=== PATIENT | female | born 1955 | race Caucasian/White ===

== ENCOUNTER 2024-03-26 17:13 | Emergency (ER) | payer MEDICARE, BC, SELFPAY ==
[2024-03-26] VITALS (8 sets, daily range): BP systolic 151–201; BP diastolic 77–119
--- NOTE | 2024-03-26 17:40 | ED.GENMED ---
ED Provider Triage
<Ludmila Bowles NP - Last Filed: 03/26/24 17:42>
-
Patient seen by provider in Triage?: Seen in Triage
Attestation: A medical screening examination has been initiated by a qualified medical provider. Based on the assessment performed at this time, it has been determined that an emergent medical condition may exist and the patient has been informed
that further medical evaluation and possible additional diagnostic testing may be needed.
HPI: 68-year-old female with no significant past medical history presents for for 'a little lightheaded,' feels 'internally queasy and tremulous,' took her blood pressure at home that was 181/85.
She got worried because she was here a year approximately a year ago with high blood pressure (also had a cold at that time) and out of nowhere was diagnosed with pneumonia
GENERAL: Alert , in no apparent distress
EYE: No visual abnormalities.
NECK: Trachea midline
ENT: No visible abnormalities.
LUNGS: No acute respiratory distress
NEUROLOGICAL: Alert and oriented
SKIN: Skin intact. No visible changes.
MUSCULOSKELETAL: Moving extremities normally
PSYCH: Normal and appropriate interaction.
This is a medical evaluation conducted in person to initiate diagnostic evaluation and provide initial therapeutics. Please see further documentation by the treating clinician.
History of Present Illness
<Ludmila Bowles LABOR RELATIONS SPECIALIST - Last Filed: 03/26/24 17:42>
General
Chief Complaint: Dizziness
Time Seen by Provider: 03/26/24 19:53
<Musa Arnold PA-C - Last Filed: 03/27/24 00:13>
History of Present Illness
History of Present Illness:
68-year-old female with history of hypertension and hyperlipidemia presents for evaluation of dizziness and generalized fatigue as well as nausea for the past 3 days. Symptoms are intermittent but seem to be worsening. She also notes that her
blood pressure and heart rate are quite elevated. Denies any chest pain or shortness of breath. Does note a correlation to symptoms from 1 year ago other than when she was diagnosed with pneumonia however at that time did have a cough and
respiratory symptoms. No recent nausea or vomiting. Scheduled to see a languages and literature instructor when she returns to [place] next month
Past History
<Ludmila Bowles LABOR RELATIONS SPECIALIST - Last Filed: 03/26/24 17:42>
Past History
ED Past Medical History: HTN and Hypercholesterolemia
ED Past Surgical History: Orthopedic (Total right hip replacement. Right hip ligament repair)
Social History
Tobacco: Non-smoker
Alcohol: Occasional
Personal:
Living: alone
Review of Systems
<Musa Arnold PA-C - Last Filed: 03/27/24 00:13>
Review of Systems
Allergies reviewed?: Yes
All Other Systems: ROS reviewed and negative except as documented in HPI and ROS
Phy Exam
<Musa Arnold PA-C - Last Filed: 03/27/24 00:13>
Physical Exam
Physical Exam:
GEN: Well appearing, NAD, WDWN
Eyes: PERRLA, EOMs intact, no scleral icterus
HENT: NCAT, oral mucosa moist, no JVD,
Lungs: CTAB, no wheezes, rales, rhonchi, normal chest wall excursion
Cardiac: RRR, no M/R/G, no peripheral edema. Radial pulses 2+ bilat
Neuro: AO x 3, no focal deficits to BUE/BLE, normal sensation throughout
MSK: No gross deformity or ecchymosis. No edema. No digital clubbing
Skin: No rashes, petechiae. Normal color, no pallor or jaundice.
Psych: Calm, cooperative, proper hygiene
Course
<Ludmila Bowles LABOR RELATIONS SPECIALIST - Last Filed: 03/26/24 17:42>
Orders/Labs/Results
Orders:
Orders
03/26/24 17:32
Electrocardiogram (*1) Urgent
Reason for Study: Hypertension, Benign
03/26/24 17:33
EKG- Treatment ONCE
03/26/24 17:45
Complete Blood Count/With Diff Urgent
Comprehensive Metabolic Panel Urgent
Magnesium Urgent
TSH Reflex To Free T4 Urgent
03/26/24 20:15
CT Head W/o Iv Contrast Urgent
Comment:
Reason For Exam: dizziness, HTN
CR Chest - 2 Views Urgent
Comment:
Reason For Exam: HTN urgency
03/26/24 20:18
Troponin I Urgent
03/26/24 22:06
Labetalol HCl [Trandate] 20 mg IV NOW STA
03/26/24 23:05
Acetaminophen [Tylenol] 650 mg PO NOW STA
Abnormal Lab Results
03/26/24
17:45
RBC 4.06 L 10^6/uL
(4.20-5.40)
MCH 32.5 H pg
(27.0-31.0)
Neutrophils % 76.0 H %
(42.2-75.2)
Lymphocytes % 15.5 L %
(20.5-51.1)
BUN 20 H mg/dl
(7-17)
Glucose 109 H mg/dl
(70-99)
03/26/24 17:45
03/26/24 17:45
Vital Signs
Initial and Last Documented VS:
Initial Vital Signs
Temp Pulse Resp BP Pulse Ox
98.2 F 115 20 176/119 98
03/26/24 17:26 03/26/24 17:26 03/26/24 17:26 03/26/24 17:26 03/26/24 17:26
Last Documented Vital Signs
Temp Pulse Resp BP Pulse Ox
98.2 F 104 18 153/91 96
03/26/24 17:26 03/26/24 23:15 03/26/24 23:15 03/26/24 23:00 03/26/24 23:15
<Musa Arnold PA-C - Last Filed: 03/27/24 00:13>
Orders/Labs/Results
Orders:
Orders
03/26/24 17:32
Electrocardiogram (*1) Urgent
Reason for Study: Hypertension, Benign
03/26/24 17:33
EKG- Treatment ONCE
03/26/24 17:45
Complete Blood Count/With Diff Urgent
Comprehensive Metabolic Panel Urgent
Magnesium Urgent
TSH Reflex To Free T4 Urgent
03/26/24 20:15
CT Head W/o Iv Contrast Urgent
Comment:
Reason For Exam: dizziness, HTN
CR Chest - 2 Views Urgent
Comment:
Reason For Exam: HTN urgency
03/26/24 20:18
Troponin I Urgent
03/26/24 22:06
Labetalol HCl [Trandate] 20 mg IV NOW STA
03/26/24 23:05
Acetaminophen [Tylenol] 650 mg PO NOW STA
Abnormal Lab Results
03/26/24
17:45
RBC 4.06 L 10^6/uL
(4.20-5.40)
MCH 32.5 H pg
(27.0-31.0)
Neutrophils % 76.0 H %
(42.2-75.2)
Lymphocytes % 15.5 L %
(20.5-51.1)
BUN 20 H mg/dl
(7-17)
Glucose 109 H mg/dl
(70-99)
03/26/24 17:45
03/26/24 17:45
Vital Signs
Initial and Last Documented VS:
Initial Vital Signs
Temp Pulse Resp BP Pulse Ox
98.2 F 115 20 176/119 98
03/26/24 17:26 03/26/24 17:26 03/26/24 17:26 03/26/24 17:26 03/26/24 17:26
Last Documented Vital Signs
Temp Pulse Resp BP Pulse Ox
98.2 F 104 18 153/91 96
03/26/24 17:26 03/26/24 23:15 03/26/24 23:15 03/26/24 23:00 03/26/24 23:15
<Musa Arnold PA-C - Last Filed: 03/27/24 00:13>
MDM/Problems Addressed
MDM/Problems Addressed:
Unclear etiology to the patient's elevated heart rate and blood pressure. Cardiac enzymes and thyroid studies are negative. Labs are overall reassuring. Head CT shows no evidence for intracranial lesion causing the lightheadedness.
Neurologically she has no focal deficits concerning for stroke. Certainly could represent an inappropriate sinus tachycardia and her symptoms and vital signs did improve after IV beta-blockers. Will start her on oral beta-blockers pending her
cardiology appointment coming up next month. Suitable for discharge to home
<Musa Arnold PA-C - Last Filed: 03/27/24 00:13>
Comment
Comment:
EKG independently interpreted by me shows a sinus tachycardia rate of 111 with few premature atrial complexes, no ischemic changes
*Critical Care Note
Total Time (30-74mins, 75-104mins- exclusive of procedures): Not Applicable
ED Attending Note
<Ludmila Bowles LABOR RELATIONS SPECIALIST - Last Filed: 03/26/24 17:42>
-
Portions of this chart may have been created with voice recognition software.� Occasional wrong word or��sound alike� substitutions may have occurred due to the inherent limitations of voice recognition software.
Discharge Plan
Departure
Patient Disposition: Home (Routine Discharge)
Date of Disposition: 03/26/24
Time of Disposition: 23:10
Patient with high blood pressure during this ER visit?: No
Discharge Problem:
Lightheadedness, Sinus tachycardia, Hypertension, uncontrolled
Instructions: High blood pressure - ED discharge instructions
Prescriptions:
New
metoprolol succinate 50 mg tablet extended release 24 hr
50 mg PO DAILY Qty: 30 0RF
No Action
Vitamin D3
biotin
doxycycline hyclate 100 mg tablet
100 mg PO BID Qty: 19 0RF
Referrals:
UNKNOWN - PT DOES,NOT KNOW [Family Provider] -
Activity Restrictions/Additional Instructions:
We will start you on metoprolol for your blood pressure and heart rate
Please take this once daily until you follow-up with the bicycle inspector as planned next month
Return to the emergency department if you develop any chest pain or shortness of breath
Interventions
Interventions:
*Risk Screen - Suicide Last Done: 03/26/24 20:43
*General Assessment Last Done: 03/26/24 17:26
*Neglect/Abuse Screening Last Done: 03/26/24 21:44
ED- Fall Risk Assessment Last Done: 03/26/24 23:00
*ED COVID-19 Vaccine History Last Done: 03/26/24 23:00
*Nursing Disposition Last Done: 03/27/24 00:04
ED- Neurological Assessment Last Done: 03/26/24 20:43
ED- Cardiac Assessment Last Done: 03/26/24 23:00
ED Swallowing Screen Last Done: 03/26/24 22:50
Discharge Date and Time
Discharge Date/Time: 03/27/24 00:05
Print Language: PALAUAN
[2024-03-26 17:51] LABS: % Basophils 0.5 % (0-2); % Eosinophils 0.6 % (0-6); % Immature Granulocytes 0.5 % (0-0.5); % Lymphocytes 15.5 % (20.5-51.1); % Monocytes 6.9 % (1.7-9.3); Absolute Eosinophils 0.1 10^3/uL (0-0.7); Absolute Lymphocytes 1.3 10^3/uL (1.2-3.4); Absolute Monocytes 0.6 10^3/uL (0.1-0.6); Absolute Neutrophils 6.2 10^3/uL (1.4-6.5); Hematocrit 38.9 % (37.0-47.0); Hemoglobin 13.2 g/dL (12.0-16.0); Mean Corp Hgb Conc. 33.9 g/dL (33.0-37.0); Mean Corpuscular Hgb 32.5 pg (27.0-31.0); Mean Corpuscular Volume 95.8 fL (81.0-99.0); Mean Platelet Volume 8.7 fL (7.4-10.4); Nucleated Red Blood Cells % 0 %; Platelet Count 218 10^3/uL (130-400); Red Blood Cell Count 4.06 10^6/uL (4.20-5.40); Red Cell Dist. Width 12.5 % (11.5-14.5); White Blood Cell Count 8.1 10^3/uL (4.8-10.8)
[2024-03-26 18:14] LABS: ALT (SGPT) 28 U/L (0-35); AST (SGOT) 31 U/L (14-36); Albumin 4.7 g/dl (3.5-5.0); Alkaline Phosphatase 115 U/L (38-126); Blood Urea Nitrogen 20 mg/dl (7-17); Calcium 9.4 mg/dl (8.4-10.2); Carbon Dioxide 26 mmol/L (22-30); Chloride 101 mmol/L (98-107); Glucose 109 mg/dl (70-99); Potassium 4.9 mmol/L (3.5-5.1); Sodium 139 mmol/L (135-145); Total Bilirubin 0.3 mg/dl (0.2-1.3); Total Protein 7.6 g/dl (6.3-8.2); eGFR > 60.00
[2024-03-26 18:44] LABS: TSH Reflex To Free T4 1.48 uIU/ml (0.47-4.68)
[2024-03-26 20:57] LABS: Troponin I < 0.012 ng/ml
[2024-03-26] MEDS: TRANDATE 20 MG IV (22:17)
[2024-03-26] MEDS: TYLENOL 650 MG PO (23:15)
== END 2024-03-27 00:05 | disposition home or self-care (01) ==
LOC: EMR 17:13
PROVIDERS: Registered Nurse; EMERGENCY PHYSICIAN Emergency Medicine
DX: R42 Dizziness and giddiness (principal); I10 Essential (primary) hypertension; E78.00 Pure hypercholesterolemia, unspecified
CPT/HCPCS: 99285; 96374; 70450; 71046; 80053; 83735; 84443; 84484; 85025; 93005